=== PATIENT | male | born 1945 | race Caucasian/White ===

== ENCOUNTER 2017-11-28 15:38 | Inpatient (IN) | payer MEDICARE, OTHER ==
[~2017-11-28] VITALS: Ht 185.4 cm; Wt 131.8 kg
[~2017-11-28 15:38] MED LIST: ALLO100T PO; AMLO1CAP71 PO; APIX5TAB3 PO; CARV6.253 PO; CLON-529 PO; DICL100G15 TP; FENO135C4 PO; FURO-150 PO; GABA-338 PO; HYDR-565 PO; LACO100T2 PO; METF500T7 PO; MULT-1141 PO; POTA10TA19 PO; TEST200V10 IM
[2017-11-28] MEDS ORDERED: aspirin 81mg tab.chew PO ONE (15:45)
[2017-11-28 16:06] LABS: BASOPHILS # (AUTO) 0.1 X10'3 (0-0.2); BASOPHILS % (AUTO) 1.5 % (0-1); EOSINOPHILS # (AUTO) 0.2 X10'3 (0-0.9); EOSINOPHILS % (AUTO) 2.9 % (0-6); HEMOGLOBIN 14.9 g/dl (14.0-17.9); LYMPHOCYTES # (AUTO) 2.5 X10'3 (1.1-4.8); LYMPHOCYTES % (AUTO) 33.2 % (21-51); MEAN CORPUSCULAR HEMOGLOBIN 29.5 PG (27.0-31.0); MEAN CORPUSCULAR HGB CONC 33.9 % (33.0-36.5); MONOCYTES # (AUTO) 0.6 X10'3 (0-0.9); MONOCYTES % (AUTO) 8.4 % (2-12); NEUTROPHILS # (AUTO) 4.1 X10'3 (1.8-7.7); PLATELET COUNT 268 X10'3 (140-440); RED BLOOD COUNT 5.06 X10'6 (4.70-6.10); RED CELL DISTRIBUTION WIDTH 15.9 % (11.5-14.5); WHITE BLOOD COUNT 7.6 X10'3 (4.5-11.0)
[2017-11-28 16:18] LABS: PARTIAL THROMBOPLASTIN TIME 27 SECONDS (22-32); PROTHROMBIN TIME 10.4 SECONDS (9.0-12.0)
[2017-11-28 16:20] LABS: ALANINE AMINOTRANSFERASE 93 U/L (12-78); ALBUMIN 4.3 G/DL (3.4-5.0); ALBUMIN/GLOBULIN RATIO 1.1 (1.1-1.5); ALKALINE PHOSPHATASE 67 IU/L (46-116); ANION GAP 11 (8-16); ASPARTATE AMINO TRANSFERASE 51 U/L (10-37); BILIRUBIN,TOTAL 0.4 MG/DL (0.1-1.0); BLOOD UREA NITROGEN 14 MG/DL (7-18); BUN/CREATININE RATIO 12.4 (5.4-32.0); CALCIUM 9.2 MG/DL (8.5-10.1); CHLORIDE 103 MMOL/L (99-107); CREATININE 1.13 MG/DL (0.60-1.10); GLUCOSE 173 MG/DL (70-104); POTASSIUM 3.8 MMOL/L (3.5-5.1); SODIUM 142 MMOL/L (135-145); TOTAL CARBON DIOXIDE 28.2 MMOL/L (24-32); TOTAL PROTEIN 8.1 G/DL (6.4-8.2); eGFR 64 ML/MIN
[2017-11-28] MEDS ORDERED: nitroGLYCERIN 1gm ointment UD TP ONE (16:55)
[2017-11-28] MEDS ORDERED: morphine 4 MG/ML inj SYRINge IV PRN ×2 (17:40)
[2017-11-28] MEDS ORDERED: magnesium hydroxide 30ml (MOM) UD suspension PO PRN (17:40)
[2017-11-28] MEDS ORDERED: acetaminophen 325mg tablet PO PRN (17:40)
[2017-11-28] MEDS ORDERED: potassium Cl 40MEQ/NS 500ml 500 ML IV PRN ×2 (17:40)
[2017-11-28] MEDS ORDERED: ondansetron/PF 4mg/2ml inj IV PRN (17:40)
[2017-11-28] MEDS ORDERED: magnesium Cl slow-release 64mg tablet PO PRN (17:40)
[2017-11-28] MEDS ORDERED: potassium Cl 20 mEq SR tablet PO PRN ×2 (17:40)
[2017-11-28] MEDS ORDERED: TESTOSTERONE CYPIONATE IM SCH (17:40)
[2017-11-28] MEDS ORDERED: mag hydrox/Alum hydrox/simeth 30ml oral suspension PO PRN (17:40)
[2017-11-28] MEDS ORDERED: magnesium 2GM in 50ml NS 50 ML IV PRN (17:40)
[2017-11-28] MEDS ORDERED: [UNRECOGNIZED DRUG - OTHER] IM SCH (17:40)
[2017-11-28] MEDS ORDERED: bisacodyl 10mg suppository rectal RC PRN (17:40)
[2017-11-28] MEDS ORDERED: HYDROcodone/acetaminophen 5mg/325mg tablet PO PRN (17:40)
[2017-11-28] MEDS ORDERED: magnesium 4gm in 100ml NS 100 ML IV PRN (17:40)
[2017-11-28] MEDS ORDERED: aminophylline 250mg/10ml inj. IV PRN (17:50)
[2017-11-28] MEDS ORDERED: metoprolol tartrate 1mg/ml inj IV PRN (17:50)
[2017-11-28] MEDS ORDERED: regadenoson 0.4mg/5ml syringe IV PRN (17:50)
[2017-11-28] MEDS ORDERED: nitroGLYCERIN 0.4mg SUBLingual tab SL PRN ×2 (17:50)
[2017-11-28] MEDS ORDERED: MESSAGE TO PHARMACY PO ONE (17:55)
[2017-11-28] MEDS ORDERED: hydrALAZINE 20mg/ml inj. IV PRN (17:55)
[2017-11-28] MEDS ORDERED: dextrose 50%-water 50ml dispensing syringe IV PRN ×2 (17:55)
[2017-11-28] MEDS ORDERED: glucagon, human recombinant 1mg kit SUBCUT PRN (17:55)
[2017-11-28] MEDS ORDERED: insulin Lispro (HumaLOG) vial - multi-dose SQ SCH (17:55)
[2017-11-28] MEDS ORDERED: dextrose ORAL solution 15 GM/59 ML bottle PO PRN ×2 (17:55)
[2017-11-28] MEDS ORDERED: LINA5TAB4 PO (18:15)
[2017-11-28] MEDS ORDERED: SOTA80TA PO (18:19)
[2017-11-28] MEDS: pantoprazole 40 MG vial IV SCH (18:45)
[2017-11-28 18:46] LABS: HEMOGLOBIN A1C 7.8 % (4.5-6.2)
[2017-11-28] MEDS: allopurinol 300 MG tablet PO SCH (20:00)
[2017-11-28] MEDS: VIMPAT 100 MG PO SCH (20:00)
[2017-11-28] MEDS ORDERED: LACOSAMIDE 100 MG PO SCH (20:00)
[2017-11-28] MEDS: furosemide 20MG tablet PO SCH (20:42)
[2017-11-28] MEDS: gabapentin 300mg capsule PO SCH (20:42)
[2017-11-28] MEDS: cloNIDine 0.1 mg tablet PO SCH (20:42)
[2017-11-28] MEDS: docusate sod 100mg capsule PO SCH (20:43)
[2017-11-28] MEDS: apixaban 5mg tablet PO SCH (20:43)
[2017-11-28] MEDS ORDERED: amLODIPine 5mg tablet PO SCH (21:00)
[2017-11-28] MEDS ORDERED: insulin glargine (Lantus) pen - multi-dose SQ SCH (21:00)
[2017-11-28] MEDS ORDERED: lisinopril 20mg tablet PO SCH (21:00)
[2017-11-28] MEDS: HYDROcodone/acetaminophen 10/325mg tab PO PRN (21:21)
[2017-11-28 22:45] VITALS: BP 156/89
[2017-11-29] VITALS (13 sets, daily range): BP systolic 111–170; BP diastolic 66–95
[2017-11-29 05:20] LABS: BASOPHILS % (AUTO) 0.4 % (0-1); EOSINOPHILS # (AUTO) 0.3 X10'3 (0-0.9); EOSINOPHILS % (AUTO) 3.4 % (0-6); HEMATOCRIT 39.5 % (42.0-52.0); HEMOGLOBIN 13.5 g/dl (14.0-17.9); LYMPHOCYTES # (AUTO) 2.7 X10'3 (1.1-4.8); LYMPHOCYTES % (AUTO) 36.3 % (21-51); MEAN CORPUSCULAR HEMOGLOBIN 29.8 PG (27.0-31.0); MEAN CORPUSCULAR HGB CONC 34.1 % (33.0-36.5); MEAN CORPUSCULAR VOLUME 87.4 FL (78-98); MEAN PLATELET VOLUME 8.3 FL (7.4-10.4); MONOCYTES # (AUTO) 0.6 X10'3 (0-0.9); MONOCYTES % (AUTO) 8.3 % (2-12); NEUTROPHILS # (AUTO) 3.9 X10'3 (1.8-7.7); NEUTROPHILS % (AUTO) 51.6 % (42-75); PLATELET COUNT 243 X10'3 (140-440); RED BLOOD COUNT 4.52 X10'6 (4.70-6.10); RED CELL DISTRIBUTION WIDTH 16.4 % (11.5-14.5); WHITE BLOOD COUNT 7.5 X10'3 (4.5-11.0)
[2017-11-29 05:32] LABS: ALANINE AMINOTRANSFERASE 85 U/L (12-78); ALBUMIN 3.6 G/DL (3.4-5.0); ALBUMIN/GLOBULIN RATIO 1.1 (1.1-1.5); ALKALINE PHOSPHATASE 54 IU/L (46-116); ANION GAP 7 (8-16); ASPARTATE AMINO TRANSFERASE 45 U/L (10-37); BILIRUBIN,TOTAL 0.4 MG/DL (0.1-1.0); BLOOD UREA NITROGEN 17 MG/DL (7-18); BUN/CREATININE RATIO 15.2 (5.4-32.0); CALCIUM 8.6 MG/DL (8.5-10.1); CHLORIDE 104 MMOL/L (99-107); CHOL/HDL RATIO 7.3 (0.00-4.99); CHOLESTEROL 146 MG/DL (0-200); CREATININE 1.12 MG/DL (0.60-1.10); GLUCOSE 183 MG/DL (70-104); HDL CHOLESTEROL 20 MG/DL (35-60); LDL CHOLESTEROL 98 MG/DL (50-100); POTASSIUM 3.5 MMOL/L (3.5-5.1); SODIUM 142 MMOL/L (135-145); TOTAL CARBON DIOXIDE 30.8 MMOL/L (24-32); TOTAL PROTEIN 6.8 G/DL (6.4-8.2); TRIGLYCERIDES 153 MG/DL (20-135); eGFR 64 ML/MIN
[2017-11-29] MEDS: pantoprazole 40 MG vial IV SCH (07:36)
[2017-11-29] MEDS: apixaban 5mg tablet PO SCH (07:54)
[2017-11-29] MEDS: gabapentin 300mg capsule PO SCH ×2 (07:54→13:55)
[2017-11-29] MEDS: allopurinol 300 MG tablet PO SCH (07:54)
[2017-11-29] MEDS: cloNIDine 0.1 mg tablet PO SCH (07:55)
[2017-11-29] MEDS: furosemide 20MG tablet PO SCH (07:55)
[2017-11-29] MEDS: docusate sod 100mg capsule PO SCH (07:56)
[2017-11-29] MEDS ORDERED: K and/or MAG REPLACEMENT MC SCH (08:00)
[2017-11-29] MEDS ORDERED: aspirin 81mg tablet.DR PO SCH (08:00)
[2017-11-29] MEDS ORDERED: FENOFIBRIC ACID PO SCH (08:00)
[2017-11-29] MEDS ORDERED: non-formulary drug (Mu-Vits-Min Th/Lycopene/Lutein (Centrum Silver Tablet) 1 EACH) PO SCH (08:00)
[2017-11-29] MEDS ORDERED: POTASSIUM CHLORIDE 8 MEQ PO SCH (08:00)
[2017-11-29] MEDS: VIMPAT 100 MG PO SCH (08:00)
[2017-11-29] MEDS ORDERED: multivitamins, therapeutics tablet PO SCH (08:00)
[2017-11-29] MEDS ORDERED: carvedilol 6.25mg tablet PO SCH (08:00)
[2017-11-29] MEDS ORDERED: potassium chloride 8mEq ER tablet PO SCH (08:00)
[2017-11-29] MEDS ORDERED: sotalol 80mg tablet PO SCH (08:10)
[2017-11-29] MEDS ORDERED: fenofibrate 145mg tablet PO SCH (08:30)
[2017-11-29] MEDS ORDERED: regadenoson 0.4mg/5ml syringe IV ONE (08:55)
[2017-11-29] MEDS ORDERED: aminophylline inj. 10 ML IV ONE (08:55)
[2017-11-29] MEDS: HYDROcodone/acetaminophen 10/325mg tab PO PRN (11:21)
[2017-11-29] MEDS ORDERED: ISOS30TA6 PO (14:41)
[2017-11-29] MEDS ORDERED: ATOR20TA66 PO (14:41)
[2017-11-29] MEDS ORDERED: ASPI-1071 PO (14:41)
[2017-11-29] MEDS ORDERED: NITR0.4T51 SL (14:41)
[2017-11-30] MEDS ORDERED: pantoprazole 40mg Tablet.DR PO SCH (07:30)
== END 2017-11-29 15:47 | disposition home or self-care (01) | DRG 303 ==
LOC: ER 15:39 → ED HOLD 17:04 → SUR 3N 22:10
PROVIDERS: ADMIT Internal Medicine; ATTEND Internal Medicine
PROC: 4A02XM4 Measurement of Cardiac Total Activity, External Approach (ICD-10-PCS; principal; 2017-11-29)
PROC: 3E073KZ Introduction of Other Diagnostic Substance into Coronary Artery, Percutaneous Approach (ICD-10-PCS; 2017-11-29)
DX: I25.10 Atherosclerotic heart disease of native coronary artery without angina pectoris (principal); E11.42 Type 2 diabetes mellitus with diabetic polyneuropathy; I48.0 Paroxysmal atrial fibrillation; E78.00 Pure hypercholesterolemia, unspecified; G47.30 Sleep apnea, unspecified; I10 Essential (primary) hypertension; M10.9 Gout, unspecified; F32.9 Major depressive disorder, single episode, unspecified; E78.5 Hyperlipidemia, unspecified; K21.9 Gastro-esophageal reflux disease without esophagitis; Z79.899 Other long term (current) drug therapy; Z86.73 Personal history of transient ischemic attack (TIA), and cerebral infarction without residual deficits; Z87.442 Personal history of urinary calculi; Z82.49 Family history of ischemic heart disease and other diseases of the circulatory system; Z82.61 Family history of arthritis; Z80.8 Family history of malignant neoplasm of other organs or systems
CPT/HCPCS: 36415; 71045; 78452; 80053; 80061; 82948; 83036; 83735; 84484; 85025; 85610; 85730; 87070; 93005; 93017; 93306; 99285; A9500; C9113; J0280; J1815

== ENCOUNTER 2017-12-20 06:02 | Day surgery (SDC) | payer MEDICARE, OTHER ==
[2017-12-19 14:19] LABS: BASOPHILS % (AUTO) 0.4 % (0-1); EOSINOPHILS # (AUTO) 0.2 X10'3 (0-0.9); EOSINOPHILS % (AUTO) 2.4 % (0-6); HEMATOCRIT 40.1 % (42.0-52.0); HEMOGLOBIN 13.6 g/dl (14.0-17.9); LYMPHOCYTES % (AUTO) 37.1 % (21-51); MEAN CORPUSCULAR VOLUME 88.2 FL (78-98); MEAN PLATELET VOLUME 8.2 FL (7.4-10.4); MONOCYTES # (AUTO) 0.7 X10'3 (0-0.9); MONOCYTES % (AUTO) 9.1 % (2-12); NEUTROPHILS # (AUTO) 4.1 X10'3 (1.8-7.7); PLATELET COUNT 259 X10'3 (140-440); RED BLOOD COUNT 4.54 X10'6 (4.70-6.10); WHITE BLOOD COUNT 8.1 X10'3 (4.5-11.0)
[2017-12-19 14:29] LABS: INR 1.1 INR; PARTIAL THROMBOPLASTIN TIME 28 SECONDS (22-32); PROTHROMBIN TIME 11.3 SECONDS (9.0-12.0)
[2017-12-19 14:33] LABS: ALBUMIN 3.8 G/DL (3.4-5.0); ANION GAP 8 (8-16); BLOOD UREA NITROGEN 18 MG/DL (7-18); BUN/CREATININE RATIO 14.6 (5.4-32.0); CALCIUM 8.2 MG/DL (8.5-10.1); CHLORIDE 104 MMOL/L (99-107); CREATININE 1.23 MG/DL (0.60-1.10); GLUCOSE 173 MG/DL (70-104); POTASSIUM 3.7 MMOL/L (3.5-5.1); SODIUM 141 MMOL/L (135-145); TOTAL CARBON DIOXIDE 29.4 MMOL/L (24-32); eGFR 58 ML/MIN
[~2017-12-20] VITALS: Ht 185.4 cm; Wt 134.8 kg
[2017-12-20] VITALS (13 sets, daily range): BP systolic 126–183; BP diastolic 73–105
[~2017-12-20 06:02] MED LIST changes: +ASPI-1071 PO; +ATOR20TA66 PO; -CARV6.253 PO; -DICL100G15 TP; +ISOS30TA6 PO; +LINA5TAB4 PO; +NITR0.4T51 SL; +SOTA80TA PO
[2017-12-20] MEDS ORDERED: diphenhydrAMINE 25mg capsule PO PRN (06:20)
[2017-12-20] MEDS ORDERED: LORazepam 0.5 MG tablet PO PRN (06:20)
[2017-12-20] MEDS ORDERED: ASPI81TA52 PO (06:46)
[2017-12-20] MEDS ORDERED: ISOS30TA6 PO (06:46)
[2017-12-20] MEDS ORDERED: OMEP20CA10 PO (06:53)
[2017-12-20] MEDS ORDERED: DICL100G30 TP (06:59)
[2017-12-20] MEDS ORDERED: MAGN400C PO (06:59)
[2017-12-20] MEDS ORDERED: OMEG-156 PO (06:59)
[2017-12-20] MEDS ORDERED: TRIA15CR61 TOP (06:59)
[2017-12-20] MEDS ORDERED: ATOR40TA PO (06:59)
[2017-12-20] MEDS ORDERED: sodium bicarbonate (8.4%) inj. 150 MEQ in sodium chloride 0.45% 850 ML IV ONE (07:07)
[2017-12-20] MEDS ORDERED: acetylcysteine 200 MG/ml 4ml vial PO SCH (07:10)
[2017-12-20] MEDS ORDERED: LIDOcaine/PRILOcaine 5gm cream TP ONE (07:15)
[2017-12-20] MEDS ORDERED: normal saline 1000ml 1,000 ML IV SCH (07:15)
[2017-12-20] MEDS ORDERED: sodium bicarbonate (8.4%) inj. 150 MEQ in sodium chloride 0.45% 1,000 ML IV ONE ×2 (07:35→10:10)
[2017-12-20] MEDS ORDERED: fentaNYL/PF 50MCG/1 ML 2ML syringe ONE (07:36)
[2017-12-20] MEDS ORDERED: midazolam 2 mg/2 ml injection ONE (07:36)
[2017-12-20] MEDS ORDERED: verapamil 2.5 mg/ml inj IV ONE (07:36)
[2017-12-20] MEDS ORDERED: nitroGLYCERIN-Tridil 50MG/D5W 250 ML IV ONE (07:36)
[2017-12-20] MEDS ORDERED: heparin 1,000unit/ml 10ml vial 10 ML ONE (07:37)
[2017-12-20] MEDS ORDERED: LIDOcaine 1%/PF (10mg/ml) 5ml vial ONE (07:37)
[2017-12-20] MEDS ORDERED: iohexol 350 MG/ML 50ML vial IV ONE (07:37)
[2017-12-20] MEDS ORDERED: iohexol 350MG/ML 100ml bottle IV ONE (07:37)
[2017-12-20] MEDS ORDERED: iohexol 350 MG/1 ML 200ml bottle ONE (08:57)
[2017-12-20] MEDS ORDERED: ticagrelor 90mg tablet ONE (09:12)
[2017-12-20] MEDS ORDERED: aspirin 81mg tab.chew PO ONE (10:00)
[2017-12-20] MEDS ORDERED: HYDROcodone/acetaminophen 10/325mg tab PO PRN (11:50)
[2017-12-20] MEDS ORDERED: hydrALAZINE 20mg/ml inj. IV ONE (14:40)
== END 2017-12-20 16:53 | disposition home or self-care (01) ==
LOC: SSTAY O 06:02
PROVIDERS: ATTEND Internal Medicine Cardiovascular Disease
DX: I25.10 Atherosclerotic heart disease of native coronary artery without angina pectoris (principal); I10 Essential (primary) hypertension; E78.5 Hyperlipidemia, unspecified; G47.33 Obstructive sleep apnea (adult) (pediatric); I48.0 Paroxysmal atrial fibrillation; I45.19 Other right bundle-branch block; F32.9 Major depressive disorder, single episode, unspecified; M19.90 Unspecified osteoarthritis, unspecified site; E66.3 Overweight; E11.40 Type 2 diabetes mellitus with diabetic neuropathy, unspecified; Z86.74 Personal history of sudden cardiac arrest; Z87.891 Personal history of nicotine dependence; Z90.89 Acquired absence of other organs; Z96.653 Presence of artificial knee joint, bilateral; Z86.14 Personal history of Methicillin resistant Staphylococcus aureus infection; Z68.39 Body mass index [BMI] 39.0-39.9, adult; Z79.82 Long term (current) use of aspirin; Z79.1 Long term (current) use of non-steroidal anti-inflammatories (NSAID); Z79.84 Long term (current) use of oral hypoglycemic drugs; Z79.01 Long term (current) use of anticoagulants; Z79.891 Long term (current) use of opiate analgesic; Z79.899 Other long term (current) drug therapy
CPT/HCPCS: 36415; 80048; 82948; 85025; 85347; 85610; 85730; 93005; 93458; 99152; 99153; A6257; A6258; A6449; C1725; C1769; C1874; C9600; J0360; J1644; J2001; J2250; J3010; J3490; J7030; Q0163; Q9967; A4620

== ENCOUNTER 2018-01-19 15:06 | Emergency (ER) | payer MEDICARE, OTHER ==
[~2018-01-19] VITALS: Ht 185.4 cm; Wt 108.4 kg
[~2018-01-19 15:06] MED LIST changes: -ASPI-1071 PO; +ASPI81TA52 PO; -ATOR20TA66 PO; +ATOR40TA PO; +DICL100G30 TP; +MAGN400C PO; -NITR0.4T51 SL; +OMEG-156 PO; +OMEP20CA10 PO; -TEST200V10 IM; +TRIA15CR61 TOP
[2018-01-19 15:12] VITALS: BP 149/88
[2018-01-19] MEDS ORDERED: oxymetazoline 15 ML nasal spray NS ONE (15:20)
[2018-01-19] MEDS ORDERED: tranexamic acid 100mg/ml inj. TP ONE (15:50)
== END 2018-01-19 17:49 | disposition home or self-care (01) ==
LOC: ER 15:07
DX: R04.0 Epistaxis (principal); I25.10 Atherosclerotic heart disease of native coronary artery without angina pectoris; E78.00 Pure hypercholesterolemia, unspecified; I10 Essential (primary) hypertension; E11.9 Type 2 diabetes mellitus without complications; Z86.73 Personal history of transient ischemic attack (TIA), and cerebral infarction without residual deficits; Z95.1 Presence of aortocoronary bypass graft; Z79.82 Long term (current) use of aspirin; Z79.899 Other long term (current) drug therapy; Z79.84 Long term (current) use of oral hypoglycemic drugs
CPT/HCPCS: 99284

== ENCOUNTER 2019-10-28 08:13 | Day surgery (SDC) | payer MEDICARE, OTHER ==
[2019-10-28] VITALS (11 sets, daily range): BP systolic 148–179; BP diastolic 80–110
[~2019-10-28] VITALS: Ht 182.9 cm; Wt 128.5 kg
[~2019-10-28 08:13] MED LIST changes: +HYDR-4353 PO; -HYDR-565 PO; +METF500T20 PO; -METF500T7 PO; -OMEP20CA10 PO; +OMEP20CA15 PO
[2019-10-28] MEDS ORDERED: DICL100G15 TOP (09:14)
[2019-10-28] MEDS ORDERED: normal saline 1,000 ML IV SCH ×2 (09:15→13:35)
[2019-10-28] MEDS ORDERED: LIDOcaine/PRILOcaine 5gm cream TP ONE (09:15)
[2019-10-28] MEDS ORDERED: diphenhydrAMINE 25mg capsule PO PRN (09:15)
[2019-10-28] MEDS ORDERED: LINA5TAB4 PO (09:17)
[2019-10-28] MEDS ORDERED: OMEG1CAP13 PO (09:17)
[2019-10-28 09:19] LABS: BASOPHILS # (AUTO) 0.1 X10'3 (0-0.2); BASOPHILS % (AUTO) 0.9 % (0-1); EOSINOPHILS # (AUTO) 0.1 X10'3 (0-0.9); EOSINOPHILS % (AUTO) 1.6 % (0-6); HEMATOCRIT 42.8 % (42.0-52.0); HEMOGLOBIN 14.6 g/dl (14.0-17.9); LYMPHOCYTES # (AUTO) 2.1 X10'3 (1.1-4.8); LYMPHOCYTES % (AUTO) 30.3 % (21-51); MEAN CORPUSCULAR HEMOGLOBIN 30.4 PG (27.0-31.0); MEAN CORPUSCULAR HGB CONC 34.1 g/dL (33.0-36.5); MONOCYTES # (AUTO) 0.6 X10'3 (0-0.9); MONOCYTES % (AUTO) 8.3 % (2-12); NEUTROPHILS % (AUTO) 58.9 % (42-75); PLATELET COUNT 265 X10'3 (140-440); RED CELL DISTRIBUTION WIDTH 14.3 % (11.5-14.5); WHITE BLOOD COUNT 6.8 X10'3 (4.5-11.0)
[2019-10-28 09:28] LABS: ANION GAP 8 (8-16); BLOOD UREA NITROGEN 14 MG/DL (7-18); BUN/CREATININE RATIO 10.9 (5.4-32.0); CALCIUM 8.7 MG/DL (8.5-10.1); CHLORIDE 107 MMOL/L (99-107); CREATININE 1.28 MG/DL (0.60-1.10); GLUCOSE 170 MG/DL (70-104); POTASSIUM 3.6 MMOL/L (3.5-5.1); SODIUM 141 MMOL/L (135-145); TOTAL CARBON DIOXIDE 26.4 MMOL/L (24-32); eGFR 55 ML/MIN
[2019-10-28] MEDS ORDERED: LORazepam 0.5 MG tablet PO PRN (09:40)
[2019-10-28 09:59] LABS: PARTIAL THROMBOPLASTIN TIME 27 SECONDS (22-32)
[2019-10-28] MEDS ORDERED: verapamil 2.5 mg/ml inj IV ONE (11:09)
[2019-10-28] MEDS ORDERED: LIDOcaine 1% (10mg/ml)w/preservative injection 20ml MDV ONE (11:10)
[2019-10-28] MEDS ORDERED: heparin 1,000unit/ml 10ml vial 10 ML ONE (11:10)
[2019-10-28] MEDS ORDERED: iohexol 350 MG/ML 50ML vial IV ONE (11:10)
[2019-10-28] MEDS ORDERED: iohexol 350MG/ML 100ml bottle IV ONE (11:10)
[2019-10-28] MEDS ORDERED: nitroGLYCERIN-Tridil 50MG/D5W 250 ML IV ONE (11:10)
[2019-10-28] MEDS ORDERED: fentaNYL/PF 50MCG/1 ML 2ML syringe ONE (11:11)
[2019-10-28] MEDS ORDERED: midazolam 2 mg/2 ml injection ONE (11:11)
[2019-10-28 12:11] LABS: ISTAT HGB ART 13.9 g/dl (14.0-18.0); ISTAT Hct ART 41 %PCV (42-52); ISTAT Hct MIX 40 %PCV (42-52); ISTAT O2 SATURATION ARTERIAL 96 % (95-98); ISTAT O2 SATURATION MIX VENOUS 67 % (60-80); ISTAT SOURCE ART; ISTAT SOURCE MIX
== END 2019-10-28 18:10 | disposition home or self-care (01) ==
LOC: SSTAY O 08:13
PROVIDERS: ATTEND Internal Medicine Cardiovascular Disease
DX: R94.39 Abnormal result of other cardiovascular function study (principal); I25.10 Atherosclerotic heart disease of native coronary artery without angina pectoris; I10 Essential (primary) hypertension; E78.5 Hyperlipidemia, unspecified; I48.0 Paroxysmal atrial fibrillation; G47.33 Obstructive sleep apnea (adult) (pediatric); E11.40 Type 2 diabetes mellitus with diabetic neuropathy, unspecified; M19.90 Unspecified osteoarthritis, unspecified site; F32.9 Major depressive disorder, single episode, unspecified; E66.3 Overweight; Z68.39 Body mass index [BMI] 39.0-39.9, adult; Z95.5 Presence of coronary angioplasty implant and graft; Z79.84 Long term (current) use of oral hypoglycemic drugs; Z79.899 Other long term (current) drug therapy; Z79.82 Long term (current) use of aspirin; Z96.659 Presence of unspecified artificial knee joint
CPT/HCPCS: 36415; 80048; 82803; 82948; 85014; 85025; 85610; 85730; 93005; 93460; 99152; 99153; C1769; C1894; J1644; J2001; J2250; J3010; J7030; Q0163; Q9967; 93458; A4620; J3490

== ENCOUNTER 2022-01-26 08:32 | Day surgery (SDC) | payer MEDICARE, OTHER ==
[2022-01-24 14:58] LABS: BASOPHILS % (AUTO) 0.6 % (0-1); EOSINOPHILS # (AUTO) 0.1 X10'3 (0-0.9); EOSINOPHILS % (AUTO) 2.1 % (0-6); HEMATOCRIT 42.6 % (42.0-52.0); HEMOGLOBIN 14.6 g/dl (14.0-17.9); LYMPHOCYTES % (AUTO) 39.9 % (21-51); MEAN CORPUSCULAR HEMOGLOBIN 31.8 PG (27.0-31.0); MEAN CORPUSCULAR HGB CONC 34.3 g/dL (33.0-36.5); MEAN CORPUSCULAR VOLUME 92.7 FL (78-98); MEAN PLATELET VOLUME 7.8 FL (7.4-10.4); MONOCYTES # (AUTO) 0.5 X10'3 (0-0.9); MONOCYTES % (AUTO) 10.3 % (2-12); NEUTROPHILS # (AUTO) 2.4 X10'3 (1.8-7.7); NEUTROPHILS % (AUTO) 47.1 % (42-75); PLATELET COUNT 201 X10'3 (140-440); RED CELL DISTRIBUTION WIDTH 15.4 % (11.5-14.5); WHITE BLOOD COUNT 5.1 X10'3 (4.5-11.0)
[2022-01-24 15:09] LABS: ALBUMIN 3.7 G/DL (3.4-5.0); ANION GAP 5 (8-16); BLOOD UREA NITROGEN 11 MG/DL (7-18); CALCIUM 8.6 MG/DL (8.5-10.1); CHLORIDE 107 MMOL/L (99-107); GLUCOSE 122 MG/DL (70-104); SODIUM 146 MMOL/L (135-145); TOTAL CARBON DIOXIDE 34.5 MMOL/L (24-32); eGFR 73 ML/MIN
[2022-01-24 15:11] LABS: APTT 29 SECONDS (22-32)
[~2022-01-26] VITALS: Ht 182.9 cm; Wt 125.1 kg
[2022-01-26] VITALS (15 sets, daily range): BP systolic 146–200; BP diastolic 80–103
[~2022-01-26 08:32] MED LIST changes: -ATOR40TA PO; +DICL100G15 TOP; -DICL100G30 TP; -ISOS30TA6 PO; -MAGN400C PO; +METF-900 PO; -METF500T20 PO; -OMEG-156 PO; +OMEG1CAP13 PO; +POTA-192 PO; -POTA10TA19 PO; -TRIA15CR61 TOP
[2022-01-26] MEDS ORDERED: diphenhydrAMINE 25mg capsule PO ONE (09:10)
[2022-01-26] MEDS ORDERED: LORazepam 0.5 MG tablet PO ONE (09:10)
[2022-01-26] MEDS ORDERED: normal saline 1000ml 1,000 ML IV SCH (09:10)
[2022-01-26] MEDS ORDERED: ISOS30TA84 PO (10:35)
[2022-01-26] MEDS ORDERED: AMLO-139 PO (10:35)
[2022-01-26] MEDS ORDERED: ALLO300T2 PO (10:35)
[2022-01-26] MEDS ORDERED: SITA100T15 PO (10:35)
[2022-01-26] MEDS ORDERED: EVOL140P3 SQ (10:35)
[2022-01-26] MEDS ORDERED: TEST200V33 IM (10:35)
[2022-01-26] MEDS ORDERED: GABA600T13 PO (10:35)
[2022-01-26] MEDS ORDERED: heparin 1,000unit/ml 10ml vial 10 ML ONE ×2 (11:14→12:44)
[2022-01-26] MEDS ORDERED: verapamil 2.5 mg/ml inj IV ONE (11:14)
[2022-01-26] MEDS ORDERED: LIDOCAINE 1% w/preservative (10 MG/ML) inj. 10mL VIAL ONE (11:14)
[2022-01-26] MEDS ORDERED: fentaNYL/PF 50MCG/1 ML 2ML syringe ONE (11:14)
[2022-01-26] MEDS ORDERED: nitroGLYCERIN-Tridil 50MG/D5W 250 ML IV ONE (11:14)
[2022-01-26] MEDS ORDERED: midazolam 1 mg/ML 2ml injection ONE (11:14)
[2022-01-26] MEDS ORDERED: iohexol 350 MG/ML 50ML vial IV ONE ×2 (11:14→12:35)
[2022-01-26] MEDS ORDERED: iohexol 350 MG/1 ML 200ml bottle ONE (11:16)
[2022-01-26] MEDS ORDERED: heparin 25,000 UNIT/250ml bag 250 ML IV ONE (12:00)
[2022-01-26] MEDS ORDERED: ondansetron/PF 4mg/2ml inj IV PRN (13:40)
[2022-01-26] MEDS ORDERED: HYDROcodone/acetaminophen 5mg/325mg tablet PO PRN (13:40)
[2022-01-26] MEDS ORDERED: HYDROcodone/acetaminophen 10/325mg tab PO PRN (13:40)
[2022-01-26] MEDS ORDERED: OXAZEpam 15mg capsule PO PRN (13:40)
[2022-01-26 15:20] LABS: ISTAT HGB ART 13.9 g/dl (14.0-18.0); ISTAT Hct ART 41 %PCV (42-52); ISTAT Hct MIX 41 %PCV (42-52); ISTAT O2 SATURATION ARTERIAL 95 % (95-98); ISTAT O2 SATURATION MIX VENOUS 73 % (60-80); ISTAT SOURCE BLNK
[2022-01-26] MEDS ORDERED: amLODIPine 5mg tablet PO ONE (19:05)
[2022-01-26] MEDS ORDERED: sotalol 80mg tablet PO ONE (19:05)
[2022-01-26] MEDS ORDERED: cloNIDine 0.1 mg tablet PO ONE (19:05)
== END 2022-01-26 20:05 | disposition home or self-care (01) ==
LOC: SSTAY O 08:32
PROVIDERS: ATTEND Internal Medicine Cardiovascular Disease
DX: R94.39 Abnormal result of other cardiovascular function study (principal); I25.10 Atherosclerotic heart disease of native coronary artery without angina pectoris; I48.91 Unspecified atrial fibrillation; I10 Essential (primary) hypertension; E78.5 Hyperlipidemia, unspecified; G47.30 Sleep apnea, unspecified; E66.9 Obesity, unspecified; Z68.37 Body mass index [BMI] 37.0-37.9, adult; E11.40 Type 2 diabetes mellitus with diabetic neuropathy, unspecified; F32.A Depression, unspecified; M10.9 Gout, unspecified; Z87.442 Personal history of urinary calculi; Z79.84 Long term (current) use of oral hypoglycemic drugs; Z79.01 Long term (current) use of anticoagulants; Z79.899 Other long term (current) drug therapy; Z95.5 Presence of coronary angioplasty implant and graft; Z98.890 Other specified postprocedural states; Z96.659 Presence of unspecified artificial knee joint; Z82.49 Family history of ischemic heart disease and other diseases of the circulatory system
CPT/HCPCS: 36415; 76937; 80048; 82803; 82948; 85014; 85025; 85347; 85610; 85730; 92920; 93005; 93460; 93571; 99152; 99153; C1725; C1751; C1769; C1894; J1644; J2250; J3010; J3490; Q0163; Q9967; A4620; A5120

== ENCOUNTER 2024-06-14 07:54 | Outpatient (CLI) | payer MEDICARE, OTHER ==
[~2024-06-14] VITALS: Ht 182.9 cm; Wt 123.4 kg
[2024-06-14] VITALS (7 sets, daily range): BP systolic 137–149; BP diastolic 68–78; PULSE 53–67; RESP 18; O2SAT 94
[~2024-06-14 07:54] MED LIST changes: -ALLO100T PO; +ALLO300T2 PO; +AMLO-139 PO; -AMLO1CAP71 PO; +EVOL140P3 SQ; -FENO135C4 PO; -GABA-338 PO; +GABA600T13 PO; +ISOS30TA84 PO; -METF-900 PO; -MULT-1141 PO; -OMEG1CAP13 PO; -OMEP20CA15 PO; +SITA100T15 PO; +TEST200V33 IM
[2024-06-14] MEDS ORDERED: nitroGLYCERIN 0.4mg SUBLingual tab SL PRN (09:10)
[2024-06-14] MEDS ORDERED: aminophylline 250mg/10ml inj. IV PRN (09:10)
[2024-06-14] MEDS: regadenoson 0.4mg/5ml syringe IV ONE (09:48)
== END 2024-06-14 23:59 | disposition home or self-care (01) ==
LOC: RAD 07:54
PROVIDERS: ATTEND Internal Medicine Cardiovascular Disease
DX: I25.10 Atherosclerotic heart disease of native coronary artery without angina pectoris (principal); I24.9 Acute ischemic heart disease, unspecified; R53.83 Other fatigue
CPT/HCPCS: 78452; 93017; A9500; J2785; J0280